=== PATIENT | male | born 1985 | race Caucasian/White ===

== ENCOUNTER 2017-01-26 20:00 | Inpatient (IN) | payer OTHER ==
--- NOTE | ~2017-01-26 | PN ---
Unit #: [id number] #: [id number] Patient: ALEX LEO [id number] [facility] [address] [place] [address] [id number] MR#: [id number] NAME: ALEX LEO ROOM: P210 Age: 32 Sex: M Admission Date: 01/26/2017 : 1985 Attending Physician: Ilsa Quintanilla M.D. Admitting Physician: Ilsa Quintanilla M.D. Primary Care Physician: Nani Bailon PROGRESS NOTES DATE 01/28/2017 DISCUSSION Mr. Leo is a 32-year-old white male with substance abuse and mood disorder who was seen today and chart was reviewed and case was discussed with the staff. He has been anxious, withdrawn and rather seclusive to himself. Meanwhile, he has been cooperative with treatment recommendations and has been taking medications and tolerating them fairly well with no reported side effects. MENTAL STATUS EXAMINATION Young white male who was casually dressed with fair personal hygiene and appears to be in no acute distress or discomfort. He was awake and alert on interaction with intact orientation. His mood was anxious with congruent affect. He denies any suicidal or homicidal ideation. His insight and judgement remains slightly impaired. TREATMENT PLAN 1. Will continue his current medications and treatment protocol and will monitor his response to the medications and make further adjustments as needed. 2. Will continue to follow up. Dictated by... Nani Aguero/fabrice TD: 01/28/2017 18:35 JOB #: [id number] Unit #: [id number] #: [id number] Patient: ALEX LEO EDGAR PROGRESS NOTES Page 1 of 1 X Ilsa Quintanilla MD X PROGRESS NOTE
--- NOTE | ~2017-01-26 | PN ---
Unit #: [id number] #: [id number] Patient: ALEX LEO [id number] [facility] [address] [place] [address] [id number] MR#: [id number] NAME: ALEX LEO ROOM: P210 Age: 32 Sex: M Admission Date: 01/26/2017 : 1985 Attending Physician: Ilsa Quintanilla M.D. Admitting Physician: Ilsa Quintanilla M.D. Primary Care Physician: Nani Bailon PROGRESS NOTES DATE 01/29/2017 DISCUSSION Mr. Leo is a 32-year-old, white male with substance abuse and mood disorder who was seen today and chart was reviewed and case was discussed with the staff. He reports doing much better and has been showing improvement in his depression and anxiety and appears to be coming out of the detox without any complications. MENTAL STATUS EXAM Young white male who was casually dressed with fair personal hygiene, appears to be in no acute distress or discomfort. He was awake and alert on interaction with intact orientation. His mood was anxious with congruent affect. He denies any suicidal or homicidal ideation. His insight and judgement remains slightly impaired. TREATMENT PLAN 1. We will continue him on his current medications and treatment protocol. We will monitor his response to the medication and make further adjustments as needed. 2. We will continue to follow up. Dictated by... Nani Aguero/sondra TD: 01/31/2017 03:01 JOB #: [id number] Unit #: [id number] #: [id number] Patient: ALEX LEO PROGRESS NOTES Page 1 of 1 X Ilsa Quintanilla MD PROGRESS NOTE
--- NOTE | ~2017-01-26 | PA ---
Unit #: [id number] #: [id number] Patient: ALEX LEO [id number] [facility] [address] [place] [address] [id number] MR#: [id number] NAME: ALEX LEO ROOM: P210 Age: 32 Sex: M Admission Date: 01/26/2017 : 1985 Date of Assessment: 01/27/2017 Attending Physician: Ilsa Quintanilla M.D. Admitting Physician: Ilsa Quintanilla M.D. Primary Care Physician: Althea Shukla M.D. PSYCHIATRIC ASSESSMENT DATE OF SERVICE 01/27/2017. IDENTIFYING DATA Mr. Leo is a 32-year-old white male who is a resident of [place], [place] and was self-referred to the hospital. CHIEF COMPLAINT "I'm feeling suicidal and I tried to overdose last night on heroin." HISTORY OF PRESENT ILLNESS Mr. Leo is a 32-year-old white male with history of mood disorder and substance abuse and dependence, who was self-referred to the hospital. Upon presentation, he reported feeling suicidal and having tried to overdose on heroin last night and started IV drug use about a month ago and reports that he has been using IV heroin on a daily basis with last use a couple of hours ago and reports increasing depression, "I'm tired of living every time I wake up, I get pissed off that I woke up, there is nothing positive in my life, anymore I don't see a reason to be here anymore. If I've to live like I've been, I don't want to be here." The patient does report increasing depression, anxiety, irritability, feelings of hopelessness and helplessness, and suicidal ideations and as such, recommendation for inpatient level of care for safety and stabilization was made and the patient was transferred to us. SUBSTANCE ABUSE HISTORY The patient reports history of cannabis, cocaine, opioids, methamphetamine, and benzodiazepine abuse, and currently IV heroin has been his drug of choice. PAST PSYCHIATRIC HISTORY The patient reports a history of chemical dependency treatment at [facility], and review of the medical records indicated that currently he is not active in any treatment program, is not seeing a psychiatrist, and is not taking any psychotropic medications. PAST MEDICAL HISTORY Hepatitis C. ALLERGIES Penicillin. PERSONAL AND SOCIAL HISTORY Unit #: [id number] #: [id number] Patient: ALEX LEO A 32-year-old white male who reports that he is and and unemployed and homeless, and has poor social support system. MENTAL STATUS EXAMINATION Young white male who was casually dressed with fair personal hygiene, appears to be in no acute distress or discomfort. He was awake and alert on interaction with intact orientation to time, place, and person. His mood was anxious and depressed with a congruent affect. His speech was slow and restricted in content. He reports having suicidal ideations, but denies any homicidal ideations, and also denies any auditory or visual hallucinations. His insight and judgment remain significantly impaired. DIAGNOSTIC IMPRESSION Psychiatric: Major depressive disorder, recurrent, moderate, without psychotic features; opioid dependence, moderate and acute withdrawals. Medical: Hepatitis C. Stressors: Moderate psychosocial stressors. TREATMENT PLAN 1. The patient has presented with a history of substance abuse and mood disorder and has been decompensating and will need inpatient hospitalization for detoxification, safety, and stabilization. We will start him on detox protocol. We will closely monitor for any worsening withdrawal symptoms. 2. Supportive therapy was provided to the patient. 3. Safe, structured, and nourishing environment will be provided. ESTIMATED LENGTH OF STAY 5 to 7 days. ABILITY TO HELP SELF Limited. WILLINGNESS TO HELP SELF The patient appears to be willing to help self. STRENGTHS 1. Communicative. 2. Cooperative. PROBLEMS 1. Chronic dysphoric symptoms. 2. Chronic chemical dependency. 3. Poor social support system. DISCHARGE CRITERIA This will be contingent upon the patient's ability to go through detox without having any significant withdrawal symptoms as well as his ability to stay safe to himself, particularly after discharge from the hospital. Dictated by... Nani Aguero/derrick TD: 01/27/2017 23:09 JOB #: [id number] Unit #: [id number] #: [id number] Patient: ALEX LEO PSYCHIATRIC ASSESSMENT Page 1 of 1 X Ilsa Quintanilla MD X PSYCHIATRIC ASSESSMENT
--- NOTE | ~2017-01-26 | DS ---
Unit #: [id number] #: [id number] [facility] [id number] [facility] [address] [place] [address] [id number] I MR#: [id number] NAME: ALEX LEO ROOM: P210 Age: 32 Sex: M Admission Date: 01/26/2017 : 1985 Discharge Date: 01/30/2017 Attending Physician: Ilsa Quintanilla M.D. Primary Care Physician: Althea Shukla M.D. DISCHARGE SUMMARY IDENTIFYING DATA Mr. Leo is a 32-year-old white male, who is a resident of [place], [place], and was self-referred to the hospital. DISCHARGE DIAGNOSES Psychiatric: Major depressive disorder, recurrent, moderate, without psychotic features; opioid dependence, moderate and acute withdrawals. Medical: Hepatitis C. Stressors: Moderate psychosocial stressors. HISTORY OF PRESENT ILLNESS Mr. Leo is a 32-year-old white male with history of mood disorder and substance abuse and dependence, who was self-referred to the hospital. Upon presentation, he reported feeling suicidal and having tried to overdose on heroin last night and started IV drug use about a month ago and reports that he has been using IV heroin on a daily basis with last use a couple of hours ago and reports increasing depression, "I'm tired of living every time I wake up, I get pissed off that I woke up, there is nothing positive in my life, anymore I don't see a reason to be here anymore. If I've to live like I've been, I don't want to be here." The patient does report increasing depression, anxiety, irritability, feelings of hopelessness and helplessness, and suicidal ideations and as such, recommendation for inpatient level of care for safety and stabilization was made and the patient was transferred to us. PAST PSYCHIATRIC HISTORY The patient reports a [facility], and review of the medical records indicated that currently he is not active in any treatment program, is not seeing a psychiatrist, and is not taking any psychotropic medications. PAST MEDICAL HISTORY Hepatitis C. HOSPITAL COURSE The patient was admitted to the adult chemical dependency unit at [facility] and was oriented to the hospital environment. Routine p.r.n. medications were initiated, and he was started back on his home medications and detox protocol was initiated. He was taking the medications regularly, and was tolerating them fairly well and was able to show a decent therapeutic response with improvement in depression and anxiety and was willing to continue treatment on an outpatient basis and as such, it was decided that she will be discharged home. We will continue treatment on an outpatient basis. Unit #: [id number] #: [id number] Patient: ALEX LEO DISCHARGE MEDICATIONS None. DISCHARGE CONDITION Stable. PROGNOSIS Fair. Dictated by... Nani Aguero/derrick TD: 01/30/2017 13:24 JOB #: [id number] DISCHARGE SUMMARY Page 1 of 1 X Ilsa Quintanilla MD X DISCHARGE SUMMARY
--- NOTE | ~2017-01-26 | HP ---
Unit #: [id number] #: [id number] Patient: ALEX LEO [id number] [place] [address] [id number] I MR#: [id number] NAME: ALEX LEO ROOM: P210 Age: 32 Sex: M Admission Date: 01/26/2017 : 1985 Attending Physician: Ilsa Quintanilla M.D. Admitting Physician: Ilsa Quintanilla M.D. Primary Care Physician: Althea Shukla M.D. HISTORY AND PHYSICAL HISTORY OF PRESENT ILLNESS Alex is a 32 year old admitted to [address] [place] [address] because of his continued drug use. He shoots heroin. PAST MEDICAL HISTORY 1. Long history of opioid abuse to include IV heroin. 2. Hepatitis C. PAST SURGICAL HISTORY Nothing reported. ALLERGIES Penicillin. SOCIAL HISTORY Smokes 1-1/2 packs per day. Denies alcohol. Admits to a long history of opioid abuse to include IV heroin. FAMILY HISTORY Medically noncontributory. REVIEW OF SYSTEMS CONSTITUTIONAL: No fever or chills. HEENT: Denies any sore throat, ear pain or runny nose. CARDIOVASCULAR: Denies chest pain, irregular heart rhythm or palpitations. CHEST: Denies shortness of breath or cough. No hemoptysis. GASTROINTESTINAL: Denies nausea, vomiting, diarrhea or chronic constipation. ENDOCRINE: Denies history of increased thirst or urination. No recent significant weight loss or gain. GENITOURINARY: Denies dysuria, frequency, or hematuria. SKIN: Denies any rashes. HEMATOLOGIC: Denies history of increased bleeding or bruising. MUSCULOSKELETAL: Denies any hot, swollen joints. No generalized muscle pain. NEUROLOGIC: Denies problems with vision or speech. No frequent, severe headaches. No numbness, tingling or weakness in any extremities. Denies loss of bladder or bowel control. CURRENT MEDICATIONS Detox protocol. PHYSICAL EXAMINATION Unit #: [id number] #: [id number] Patient: ALEX LEO GENERAL: Alert, well-nourished, in no apparent distress. VITAL SIGNS: Blood pressure 100/52, heart rate 80, respirations 16, temperature 98.6. WEIGHT: 145. HEIGHT: 6 feet 1 inch. SKIN: Warm and dry without rash or lesion. HEENT: Normocephalic. TMs not viewed. Oral and nasal passages clear. Conjunctivae clear. PERRLA. EOMs intact. NECK: Supple without lymphadenopathy or thyromegaly. HEART: Regular rate and rhythm without murmur. LUNGS: Clear. ABDOMEN: Soft, nontender. : Not done. EXTREMITIES: No evidence of cyanosis, clubbing or edema. Moves all without focal deficit. NEUROLOGICAL: Grossly within normal limits. Cranial Nerves: II: Visual sanchez are intact. III, IV AND : Extraocular movements are intact. Pupils are equal, round and reactive to light. V: Facial sensation is grossly normal. VII: Facial movements and expression are normal. VIII: Auditory acuity grossly intact. IX, X: Uvula is midline. Phonation is normal. XI: Patient shrugs shoulders and turns head normally. XII: Tongue protrudes in the midline. Sensory and Motor Function: Sensory and motor sensation is grossly normal. Motor: moves all extremities well. Coordination: Gait is normal. Deep Tendon Reflexes: Intact. IMPRESSION Psychiatric admission. RECOMMENDATIONS PSYCHIATRIC: Per psychiatrist. MEDICAL: See no contraindication to participate in facility's activities. MEDICAL PROGNOSIS Good. MEDICAL CONDITION Stable. Dictated by... Iris Navarrete P.A.-C. for Nani Sanchez/fabrice TD: 01/27/2017 17:18 JOB #: [id number] Unit #: [id number] #: [id number] Patient: ALEX LEO HISTORY AND PHYSICAL Page 1 of 1 X Iris Navarrete HISTORY AND PHYSICAL
[2017-01-28 11:14] LABS: URINE BLOOD NEG (NEG); URINE COLOR BROWN; URINE GLUCOSE NORM (NORM); URINE KETONE NEG (NEG); URINE LEUKOCYTE ESTERASE 2+ (NEG); URINE NITRATE NEG (NEG); URINE PH 6.5 (5-8); URINE PROTEIN NEG (NEG); URINE SPECIFIC GRAVITY 1.015 (1.003-1.035); URINE UROBILINOGEN 4 MG/DL (NORM)
[2017-01-28 11:16] LABS: URINE APPEARANCE TURBID; URINE BILIRUBIN NEG (NEG)
[2017-01-28 11:37] LABS: AMPHETAMINE POS (NEG); BARBITURATES NEG (NEG); BENZODIAZEPINES NEG (NEG); COCAINE POS (NEG); MARIJUANA POS (NEG); OPIATES POS (NEG); TRICYCLIC ANTIDEPRESSANTS NEG (NEG); U METHADONE NEG (NEG)
[2017-01-28 12:04] LABS: URINE AMORPHOUS SEDIMENT AMORP URATES; URINE BACTERIA AUWI 1+ (NEGATIVE); URINE CRYSTALS CALCIUM OXALATE /[HPF]; URINE MUCUS PRESENT; URINE SQUAMOUS EPITHELIAL CELL FEW /[HPF]
== END 2017-01-30 09:05 | DRG 885 ==
LOC: P2S 22:27
PROVIDERS: Psychiatry & Neurology Psychiatry
PROC: HZ2ZZZZ Detoxification Services for Substance Abuse Treatment (ICD-10-PCS; principal; 2017-01-27)
DX: F33.1 Major depressive disorder, recurrent, moderate (principal); F11.23 Opioid dependence with withdrawal; B19.20 Unspecified viral hepatitis C without hepatic coma; Z88.0 Allergy status to penicillin; F17.200 Nicotine dependence, unspecified, uncomplicated
CPT/HCPCS: 80307; 81003